=== PATIENT | female | born 1975 | race Two or more races ===

== ENCOUNTER 2017-12-14 22:09 | Emergency (ER) | payer SELFPAY ==
--- NOTE | 2017-12-14 22:33 | CPEKG ---
Heart Rate: 82 RR Interval: 732 P-R Interval: 168 QRSD Interval: 82 QT Interval: 400 QTC Interval: 468 P [place]: 22 QRS [place]: 38 T Wave [place]: -1 EKG Severity - NORMAL ECG - EKG Impression: SINUS RHYTHM Electronically Signed By: Scott Bland 15-Dec-2017 06:04:29
[2017-12-14 22:57] LABS: PLATELET COUNT 193 10^3/uL (150-400)
--- NOTE | 2017-12-15 00:46 | EDPHY ---
H & P Stated Complaint: RUQ abd pain intermittant for months now radiating through chest to shoulde Time Seen by Provider: 12/14/17 22:24 HPI/ROS: Chief Complaint: Abdominal pain HPI: 42-year-old woman has been having episodes of right upper quadrant abdominal pain for the last several months. At 1st it was just every month or so. No last couple months has been every 2 weeks or so. Patient had last Tuesday and again had a tonight. Patient states pain and right upper quadrant of her abdomen. It happens after meals, particular after she said fatty foods. Some nausea but no vomiting. No fevers or chills. No urinary urgency or frequency. It does radiate to her upper abdomen. ROS: 10 point Review of Systems is negative except as noted in the HPI. PMH: Denies Social History: No smoking, no alcohol, no recreational drug use Family History: non-contributory Physical Exam: Gen: Awake, Alert, No Distress HEENT: Nose: no rhinorrhea Eyes: PERRLA, EOMI Mouth: Moist mucosa Neck: Supple, no JVD Chest: nontender, lungs clear to auscultation Heart: S1, S2 normal, no murmur Abd: Soft, mild right upper quadrant tenderness, no guarding Back: no CVA tenderness, no midline tenderness Ext: no edema, non-tender Skin: no rash Neuro: CN II-XII intact, Sensation grossly intact, Strength 5/5 in bilateral upper and lower extremities - Personal History LMP (Females 10-55): 1-7 Days Ago Current Tetanus/Diphtheria Vaccine: Yes Current Tetanus Diphtheria and Acellular Pertussis (TDAP): Yes - Medical/Surgical History Hx Asthma: No Hx Chronic Respiratory Disease: No Hx Diabetes: No Hx Cardiac Disease: No Hx Renal Disease: No Hx Cirrhosis: No Hx Alcoholism: No Hx HIV/AIDS: No Hx Splenectomy or Spleen Trauma: No 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 Cholelithiasis with an impacted stone in the gallbladder neck, and a 2 mm gallbladder polyp. There is no secondary evidence of cholecystitis. 2. The common bile duct is upper-normal for this age measuring 5.5 mm with no intrahepatic bile duct dilatation. Correlation with serum bilirubin level is suggested. 3. There is a 1.3 cm partially-calcified cystic lesion in the lower pole of the right kidney. While this may very well be benign, confirmation with unenhanced and contrast-enhanced CT imaging of the abdomen is suggested at an elective time. Findings and recommendations were discussed with Scott Bland MD at 23:50, on 12/14/2017. Imaging: Discussed imaging studies w/ faculty i on call medical assistant Radiologist ED Course/Re-evaluation: Ultrasound the abdomen is noted. Repeat examination patient is soft with minimal tenderness. She states her pain is gone. I have discussed with Dr. Nazario, general surgery. He is recommending discharging will see the patient in his office tomorrow. I have provided her with the instructions. Her daughter is translated. She has no questions at this time. Initial history was taken with a public relations studies director at the bedside. - Data Points Laboratory Results: Laboratory Results 12/14/17 22:45 12/14/17 22:45 12/14/17 12/14/17 12/14/17 22:45 22:45 22:45 WBC 5.94 10^3/uL 10^3/uL (3.80-9.50) RBC 4.17 10^6/uL L 10^6/uL (4.18-5.33) Hgb 12.1 g/dL L g/dL (12.6-16.3) Hct 35.5 % L % (38.0-47.0) MCV 85.1 fL fL (81.5-99.8) MCH 29.0 pg pg (27.9-34.1) MCHC 34.1 g/dL g/dL (32.4-36.7) RDW 12.4 % % (11.5-15.2) Plt Count 193 10^3/uL 10^3/uL (150-400) MPV 10.5 fL fL (8.7-11.7) Neut % (Auto) 55.0 % % (39.3-74.2) Lymph % (Auto) 30.1 % % (15.0-45.0) [place] % (Auto) 6.7 % % (4.5-13.0) Eos % (Auto) 7.7 % H % (0.6-7.6) Baso % (Auto) 0.3 % % (0.3-1.7) Nucleat RBC Rel Count 0.0 % % (0.0-0.2) Absolute Neuts (auto) 3.26 10^3/uL 10^3/uL (1.70-6.50) Absolute Lymphs (auto) 1.79 10^3/uL 10^3/uL (1.00-3.00) Absolute Monos (auto) 0.40 10^3/uL 10^3/uL (0.30-0.80) Absolute Eos (auto) 0.46 10^3/uL H 10^3/uL (0.03-0.40) Absolute Basos (auto) 0.02 10^3/uL 10^3/uL (0.02-0.10) Absolute Nucleated RBC 0.00 10^3/uL 10^3/uL (0-0.01) Immature Gran % 0.2 % % (0.0-1.1) Immature Gran # 0.01 10^3/uL 10^3/uL (0.00-0.10) Sodium 138 mEq/L mEq/L (135-145) Potassium 3.7 mEq/L mEq/L (3.3-5.0) Chloride 104 mEq/L mEq/L (97-110) Carbon Dioxide 23 mEq/l mEq/l (22-31) Anion Gap 11 mEq/L mEq/L (8-16) BUN 17 mg/dL mg/dL (7-23) Creatinine 0.5 mg/dL L mg/dL (0.6-1.0) Estimated GFR > 60 Glucose 141 mg/dL H mg/dL (70-100) Calcium 9.5 mg/dL mg/dL (8.5-10.4) Total Bilirubin 0.5 mg/dL mg/dL (0.1-1.4) AST 50 IU/L H IU/L (14-46) ALT 32 IU/L IU/L (9-52) Alkaline Phosphatase 92 IU/L IU/L (38-126) Total Protein 7.9 g/dL g/dL (6.3-8.2) Albumin 4.4 g/dL g/dL (3.5-5.0) Lipase 61 IU/L IU/L (23-300) Beta HCG, Qual NEGATIVE Departure - Departure Disposition: Home, Routine, Self-Care Clinical Impression: Gallstones Condition: Good Instructions: Gallstones (ED), Biliary Colic (ED) Additional Instructions: You may take hydrocodone, 1-2 tablets every 6 hr as needed for pain. Follow up with Dr. Nazario later today. Call his office this morning to set up an appointment. Referrals: Ric Nazario MD [Medical Doctor] - As per Instructions
[2017-12-15] MEDS ORDERED: HYDROCOD/APAP 5/325 PREPACK#6 BTL TAKEHOME ONE (00:48)
[2017-12-15 01:31] VITALS: BP 98/76
== END 2017-12-15 01:29 | disposition home or self-care (01) ==
DX: K80.20 Calculus of gallbladder without cholecystitis without obstruction (principal)

== ENCOUNTER 2018-05-04 05:48 | Observation (INO) | payer OTHER ==
[2018-05-04] MEDS ORDERED: cefOXitin SODIUM 2 GM in NS 100 ML IV ONE (06:00)
[2018-05-04] MEDS ORDERED: LR 1,000 ML IV ONE (06:05)
[2018-05-04] MEDS ORDERED: MIDAZOLAM 2 MG/2 ML VIAL IVP ONE (07:01)
--- NOTE | 2018-05-04 07:01 | PDANEPAE ---
ANE History of Present Illness cholelithiasis ANE Past Medical History - Cardiovascular History Hx Hypertension: No Hx Arrhythmias: No Hx Chest Pain: No Hx Coronary Artery / Peripheral Vascular Disease: No Hx CHF / Valvular Disease: No Hx Palpitations: No - Pulmonary History Hx COPD: No Hx Asthma/Reactive Airway Disease: No Hx Recent Upper Respiratory Infection: No Hx Oxygen in Use at Home: No Hx Sleep Apnea: No Sleep Apnea Screening Result - Last Documented: Negative - Neurologic History Hx Cerebrovascular Accident: No Hx Seizures: No Hx Dementia: No Neurologic History Comment: has had fainting spells in past - Endocrine History Hx Diabetes: No Hypothyroid: No Hyperthyroid: No Obesity: no - Renal History Hx Renal Disorders: No - Liver History Hx Hepatic Disorders: No - Neurological & Psychiatric Hx Hx Neurological and Psychiatric Disorders: No - Cancer History Hx Cancer: No - Congenital Disorder History Hx Congenital Disorders: No - GI History Hx Gastrointestinal Disorders: No Gastrointestinal History Comment: reflux with spicy foods - Other Health History Other Health History: hx cystosarcosis?? - Chronic Pain History Chronic Pain: No - Surgical History Prior Surgeries: N/a ANE Review of Systems Review of systems is: negative Review of Systems: - Exercise capacity Exercise capacity: >=4 METS METS (RN): 4 METS ANE Patient History - Allergies Allergies/Adverse Reactions: No Known Allergies Allergy (Verified 05/03/18 17:06) - Home Medications Home Medications: NK [No Known Home Meds] 05/03/18 [Last Taken Unknown] - NPO status NPO Status: no food or drink >8 hours NPO Since - Liquids (Date): 05/03/18 NPO Since - Liquids (Time): 09:30 NPO Since - Solids (Date): 05/03/18 NPO Since - Solids (Time): 09:30 - Anes Hx Anes Hx: no prior problems - Smoking Hx Smoking Status: Never smoked - Alcohol Use Alcohol Use: None - Family Anes Hx Family Anes Hx: none Family Hx Anesthesia Complications: none ANE Labs/Vital Signs - Vital Signs Blood Pressure: 113/72 Heart Rate: 63 Respiratory Rate: 18 O2 Sat (%): 95 Height: 162.56 cm Weight: 64.41 kg ANE Physical Exam - Airway Neck exam: FROM Mallampati Score: Class 2 Mouth exam: normal dental/mouth exam - Pulmonary Pulmonary: no respiratory distress - Cardiovascular Cardiovascular: regular rate and rhythym - ASA Status ASA Status: II ANE Anesthesia Plan Anesthesia Plan: general endotracheal anesthesia
[2018-05-04] MEDS ORDERED: BUPIVACAINE 0.5% 30 ML SDV ONE (07:12)
--- NOTE | 2018-05-04 07:19 | PDHPUP ---
History & Physical Update H&P update statement: This history and physical update is based on an assessment of the patient which was completed after admission or registration (within 24 hours), but prior to the surgery/procedure. H&P update: H&P reviewed & patient examined, no change in patient's condition since H&P completed
[2018-05-04] MEDS ORDERED: ONDANSETRON 4 MG/2 ML VIAL ONE (07:24)
[2018-05-04] MEDS ORDERED: fentaNYL 100 MCG/2 ML INJ ONE ×2 (07:24→09:18)
[2018-05-04] MEDS ORDERED: PROPOFOL 200 MG/20 ML VIAL ONE (07:24)
[2018-05-04] MEDS ORDERED: LIDOCAINE 2% 2 ML INJ ONE (07:24)
[2018-05-04] MEDS ORDERED: DEXAMETHASONE 4 MG/ML VIAL ONE (07:24)
[2018-05-04] MEDS ORDERED: ROCURONIUM 50 MG/5 ML VIAL ONE (07:24)
[2018-05-04] MEDS ORDERED: SUGAMMADEX SODIUM 200 MG/2 ML VIAL IVP ONE (07:24)
[2018-05-04 07:40] LABS: PLATELET COUNT 180 10^3/uL (150-400)
[2018-05-04] MEDS ORDERED: IOTHALAMATE MEG (CONRAY) 50 ML VIAL IV ONE (07:43)
--- NOTE | 2018-05-04 08:48 | POSTOPPROG ---
Post Op Note Date of Operation: 05/04/18 Surgeon: Phani Dixon Master Glazier: Leda Anesthesiologist: Ham Anesthesia: GET(General Endotracheal) Pre-op Diagnosis: Cholelithiasis Post-op Diagnosis: same Indication: same, pain Procedure: Lap irina Findings: One large stone. Inf/Abcess present in the surg proc area at time of surgery?: No Depth: Organ Space EBL: Minimal Specimen(s): Gallbladder.
[2018-05-04] MEDS ORDERED: oxyCODONE IR 5 MG TAB PO PRN (08:54)
[2018-05-04] MEDS ORDERED: NALOXONE HCL 0.4 MG/ML INJ IVP PRN (08:54)
[2018-05-04] MEDS ORDERED: HYDROmorphONE/DILAUDID 2 MG/ML INJ IVP PRN (08:54)
[2018-05-04] MEDS ORDERED: ONDANSETRON 4 MG/2 ML VIAL IVP PRN ×2 (08:54→12:01)
[2018-05-04] MEDS ORDERED: fentaNYL 100 MCG/2 ML INJ IVP PRN (08:54)
[2018-05-04] MEDS ORDERED: PROMETHAZINE HCL 25 MG/ML INJ IVP PRN (08:54)
[2018-05-04] MEDS ORDERED: ACETAMINOPHEN 500 MG TAB PO PRN (08:54)
[2018-05-04] MEDS ORDERED: HYDROCODONE/APAP 5/325 TAB PO PRN (08:54)
--- NOTE | 2018-05-04 08:55 | POSTANESTH ---
Post Anesthetic Evaluation Cardiovascular Status: Normal, Stable Respiratory Status: Normal, Stable Level of Consciousness/Mental Status: Can Participate in Eval Pain Control: Adequate, Prn Tx Ordered Nausea/Vomiting Control: Adequate, Prn Tx Ordered Complications Possibly Related to Anesthesia: None Noted
[2018-05-04] MEDS ORDERED: oxyCODONE IR 5 MG TAB ONE (10:47)
[2018-05-04] MEDS ORDERED: HYDROmorphONE/DILAUDID 1 MG/ML INJ IVP PRN (12:00)
[2018-05-04] MEDS ORDERED: ONDANSETRON DISINTEGRATING 4 MG TAB PO PRN (12:01)
[2018-05-04] MEDS ORDERED: NS 1,000 ML IV SCH (12:15)
[2018-05-04] MEDS ORDERED: HYDROCODONE/APAP 5/325 TAB ONE (13:14)
--- NOTE | 2018-05-04 13:33 | GOP ---
DATE OF OPERATION: 05/04/2018 SURGEON: Phani Dixon MD EDITOR CONTINUITY AND SCRIPT: Jessica Tompkins NP ANESTHESIOLOGIST: Jose E Cheek MD PREOPERATIVE DIAGNOSIS: Symptomatic cholelithiasis and cholecystitis. POSTOPERATIVE DIAGNOSIS: Symptomatic cholelithiasis and cholecystitis. PROCEDURE PERFORMED: Laparoscopic cholecystectomy with attempted cholangiogram. FINDINGS: The patient was found to have a single large gallstone. She had small ducts. Cholangiogr am was attempted, but the cholangiogram catheter would not pass through the small ductal opening. ESTIMATED BLOOD LOSS: Negligible. DESCRIPTION OF PROCEDURE: The patient was taken to the operating room where she received satisfactor y general endotracheal anesthesia. She was placed in a supine position, prepped and draped in usual sterile fashion. Periumbilical incision was made. A Veress needle was inserted. Pneumoperitoneum was established. T rocar was introduced. Laparoscope introduced. Good visualization was obtained. Three other trocars were placed in the upper abdomen under direct vision. The gallbladder was elevated up. Adhesions w ere taken down. The gallbladder was moderately thickened and inflamed. The cystic triangle was care fully dissected free. The cystic duct was isolated. The cystic artery was isolated. A good clear v iew was obtained. The cystic artery was multiply hemoclipped and divided. The cystic duct was then hemoclipped proximally. A cholangiogram catheter was brought in through the separate stab incision a nd then attempt was made to pass the cholangiogram catheter was down through an incision in the cysti c duct; however, the catheter would not pass after multiple attempts and attempt was discontinued. T he cystic duct was multiply hemoclipped and divided. The peritoneum of the gallbladder was incised. The gallbladder was dissected free from the bed in the hepatic fossa and extracted through the upper midline port site. Hemostasis was assured. The wound was irrigated. Trocars removed under direct vision. Trocar sites were closed with 0 Vicryl for the fascia, 4-0 Monocryl subcuticular stitch for the skin, and all layers infiltrated with 0.5% Marcaine. COMPLICATIONS: No complications. /[id number]/MODL
[2018-05-04] MEDS: ACETAMINOPHEN 325 MG TAB PO PRN ×2 (16:27→20:36)
[2018-05-04] MEDS: oxyCODONE IR 5 MG TAB PO PRN ×2 (16:28→20:36)
[2018-05-04] MEDS: KETOROLAC 15 MG/1 ML SDV IVP SCH (17:06)
[2018-05-05] MEDS: oxyCODONE IR 5 MG TAB PO PRN ×6 (00:10→23:46)
[2018-05-05] MEDS: KETOROLAC 15 MG/1 ML SDV IVP SCH ×5 (00:10→23:45)
[2018-05-05] MEDS: ACETAMINOPHEN 325 MG TAB PO PRN ×5 (00:10→23:46)
[2018-05-05 15:25] LABS: PLATELET COUNT 176 10^3/uL (150-400)
--- NOTE | 2018-05-05 15:26 | SOAPPROG ---
SOAP Progress Note Assessment/Plan: Assessment: 43 y/o F s/p lap irina POD #1. Admitted for postop pain control. S: Still having incisional pain. Having some nausea, but tolerating a regular diet and passing gas. O: Alert Afebrile RRR No increased WOB Abdomen: soft, appropriately ttp, incisions cdi, normoactive bowel sounds Plan: Originally had planned to discharged pt, but received call from RN that pt is still having significant pain and nausea. Will plan to keep her one more night. Will check CBC and CMP. 05/05/18 15:19 Objective: Vital Signs Temp Pulse Resp BP Pulse Ox 36.1 C 69 16 117/78 92 05/05/18 11:24 05/05/18 11:24 05/05/18 11:24 05/05/18 11:24 05/05/18 11:24 05/04/18 05/05/18 05/06/18 05:59 05:59 05:59 Intake Total 2350 Output Total 1760 250 Balance 590 -250 ICD10 Worksheet Patient Problems: Problems Problem Status Onset Cholelithiasis Acute - ICD10 Problem Qualifiers (1) Cholelithiasis
[2018-05-05] MEDS ORDERED: POLYETHYLENE GLYCOL 3350 17 GM PKT PO PRN (15:59)
[2018-05-05] MEDS ORDERED: MAGNESIUM HYDROXIDE 30 ML UDCUP PO PRN (15:59)
[2018-05-05] MEDS ORDERED: BISACODYL 10 MG SUPP PR PRN (15:59)
[2018-05-05] MEDS ORDERED: LACTULOSE 20 GM/30 ML UDCUP PO PRN (15:59)
[2018-05-05] MEDS: SIMETHICONE 80 MG TAB CHEW PO SCH ×3 (17:53→20:07)
[2018-05-05] MEDS: SENNOSIDES/DOCUSATE SODIUM TAB PO SCH (20:04)
[2018-05-06] MEDS: KETOROLAC 15 MG/1 ML SDV IVP SCH ×3 (06:39→23:56)
--- NOTE | 2018-05-06 09:31 | SOAPPROG ---
SOAP Progress Note Assessment/Plan: Assessment/Plan: 43yo F POD#2 s/p lap irina. Pain improving. Dizziness when sitting up - BP has been stable. Encouraged PO fluids. No nausea, no vomiting Regular diet. Passing flatus. Dispo: wants to DC home today. FU 2 weeks. No heavy lifting, pushing or pulling greater than 15 lb x2 weeks. Seen c Dr. Smith S: Still having incisional pain. Having some nausea, but tolerating a regular diet and passing gas. O: Lying in bed resting comfortably, no acute distress No increased WOB Bowel sounds present, softly distended, nontender to palpation. Incisions clean , dry and intact without evidence of infection. Objective: Vital Signs Temp Pulse Resp BP Pulse Ox 36.9 C 70 16 99/65 L 90 L 05/06/18 08:03 05/06/18 08:03 05/06/18 08:03 05/06/18 08:03 05/06/18 08:03 Laboratory Results 05/05/18 15:00 05/05/18 15:00 05/05/18 05/06/18 05/07/18 05:59 05:59 05:59 Intake Total 2350 1750 Output Total 1760 250 Balance 590 1500 ICD10 Worksheet Patient Problems: Problems Problem Status Onset Cholelithiasis Acute
[2018-05-06] MEDS: oxyCODONE IR 5 MG TAB PO PRN ×2 (09:39→17:52)
[2018-05-06] MEDS: SENNOSIDES/DOCUSATE SODIUM TAB PO SCH ×2 (09:40→19:15)
[2018-05-06] MEDS: SIMETHICONE 80 MG TAB CHEW PO SCH ×4 (09:40→21:16)
--- NOTE | 2018-05-06 10:20 | GDS ---
GENERAL DISCHARGE SUMMARY ADMITTING DIAGNOSIS: Cholelithiasis. SECONDARY DIAGNOSIS: None. REASON FOR ADMISSION: The patient is a 43-year-old woman with known cholelithiasis. She was admitted for surgical intervention, pain control, and observation. HOSPITAL COURSE: She was taken to the operating room on 05/04/[address] Phani Dixon for a laparoscopic cholecystectomy. At the time of surgery, 1 large stone was present. At the time of dictation, pathology revealed chronic calculous cholecystitis with cholesterolosis. Postoperatively, she suffered from abdominal pain and nausea. She was admitted for pain control and management of nausea. By postoperative day #2, her pain was well controlled with oral pain medication. She was tolerating a regular diet. She was ambulating independently and was ready for discharge. On the day of discharge, she noted some dizziness with sitting and standing. I reviewed her blood pressures. They are stable, and her H and H are also stable. Encouraged oral hydration. DISCHARGE CONDITION: She is being discharged home in stable condition. Pain is controlled with oral pain medication, tolerating a regular diet, ambulating independently. DISCHARGE INSTRUCTIONS AND FOLLOWUP: She will follow up with Dr. Dixon in 2 weeks for routine postop check. Avoid heavy lifting, pushing, or pulling greater than 15 pounds for 2 weeks. She may shower. Call with any worsening symptoms, questions or concerns. DISCHARGE MEDICATIONS: She was sent home with a prescription for oxycodone. This was provided to her immediately after surgery, and instructed to resume home medications. See EMR for further details. ADDENDUM: The patient did not discharge on 05/06/2018, due to dizziness. She received IV fluids. On 05/07/2018, her dizziness was improved. Her pain was controlled with oral pain medication. Labs were stable. Vital signs stable. She is ready for discharge home. DISCHARGE INSTRUCTIONS AND FOLLOWUP: I will have her see Dr. Dixon in 1 week for postop check and have LFTs and bilirubin drawn prior to her visit. Call with any worsening symptoms, questions, or concerns. /[id number]/MODL and [id number]/MODL [facility]
[2018-05-06] MEDS: ACETAMINOPHEN 325 MG TAB PO PRN ×2 (14:49→19:15)
[2018-05-07] MEDS: ACETAMINOPHEN 325 MG TAB PO PRN ×2 (00:02→08:36)
[2018-05-07] MEDS: oxyCODONE IR 5 MG TAB PO PRN ×3 (03:57→13:04)
[2018-05-07 04:02] VITALS: BP 122/77
[2018-05-07] MEDS: KETOROLAC 15 MG/1 ML SDV IVP SCH ×2 (06:09→12:58)
[2018-05-07] MEDS: SENNOSIDES/DOCUSATE SODIUM TAB PO SCH (08:36)
[2018-05-07] MEDS: SIMETHICONE 80 MG TAB CHEW PO SCH ×2 (08:37→13:04)
--- NOTE | 2018-05-07 11:21 | SOAPPROG ---
SOAP Progress Note Assessment/Plan: Assessment/Plan: 43yo F POD#3 s/p lap irina. Pain controlled. Dizziness when upright/walking - BP stable. Recheck labs. Encouraged PO fluids. Minor nausea, no vomiting. Regular diet. Passing flatus. No BM Dispo: stayed yesterday dt dizziness and to receive IVF. DC home today. Seen with adult health clinical nurse specialist S: Better today. Pain controlled. Still dizziness when upright and walking, but slightly better than yesterday. Mild nausea, but tolerating a regular diet and passing gas. O: Lying in bed resting comfortably, no acute distress, family at bedside No increased WOB, CTAB RRR no peripheral edema Bowel sounds present, soft, nondistended, nontender to palpation. Incisions clean, dry and intact without evidence of infection. Objective: Vital Signs Temp Pulse Resp BP Pulse Ox 36.5 C 72 16 122/77 H 93 05/07/18 04:01 05/07/18 04:01 05/07/18 04:01 05/07/18 04:01 05/07/18 04:01 Laboratory Results 05/05/18 15:00 05/05/18 15:00 05/06/18 05/07/18 05/08/18 05:59 05:59 05:59 Intake Total 1750 385 Output Total 250 Balance 1500 385 ICD10 Worksheet Patient Problems: Problems Problem Status Onset Cholelithiasis Acute
== END 2018-05-07 13:58 | disposition home or self-care (01) ==
LOC: FSGY 05:48 → F3E 12:11 → FOB 13:55
PROVIDERS: ADMIT Surgery; ATTEND Surgery
PROC: 0FT44ZZ Resection of Gallbladder, Percutaneous Endoscopic Approach (ICD-10-PCS; principal; 2018-05-04 07:15)
DX: G89.18 Other acute postprocedural pain (principal); K80.11 Calculus of gallbladder with chronic cholecystitis with obstruction
CPT/HCPCS: G0008; G0378; J0694; J1100; J1885; J2250; J2405; J2704; J3010; Q9961